=== PATIENT | female | born 1945 | race Caucasian/White ===

== ENCOUNTER → 2024-06-24 10:17 | Outpatient (REF) | payer OTHER, SELFPAY ==
[2024-06-24 10:50] LABS: % Basophils 0.6 % (0-2); % Eosinophils 1.1 % (0-6); % Immature Granulocytes 0.2 % (0-0.5); % Lymphocytes 21.3 % (20.5-51.1); % Monocytes 9.1 % (1.7-9.3); % Neutrophils 67.7 % (42.2-75.2); Absolute Basophils 0.1 10^3/uL (0-0.2); Absolute Eosinophils 0.1 10^3/uL (0-0.7); Absolute Lymphocytes 1.8 10^3/uL (1.2-3.4); Absolute Monocytes 0.8 10^3/uL (0.1-0.6); Absolute Neutrophils 5.8 10^3/uL (1.4-6.5); Hematocrit 40.1 % (37.0-47.0); Hemoglobin 13.1 g/dL (12.0-16.0); Mean Corp Hgb Conc. 32.7 g/dL (33.0-37.0); Mean Corpuscular Volume 88.7 fL (81.0-99.0); Mean Platelet Volume 9.4 fL (7.4-10.4); Nucleated Red Blood Cells % 0 %; Platelet Count 269 10^3/uL (130-400); Red Blood Cell Count 4.52 10^6/uL (4.20-5.40); Red Cell Dist. Width 12.9 % (11.5-14.5); White Blood Cell Count 8.6 10^3/uL (4.8-10.8)
[2024-06-24 11:14] LABS: ALT (SGPT) 14 U/L (0-35); AST (SGOT) 25 U/L (14-36); Albumin 4.2 g/dl (3.5-5.0); Alkaline Phosphatase 89 U/L (38-126); Blood Urea Nitrogen 21 mg/dl (7-17); Calcium 9.2 mg/dl (8.4-10.2); Carbon Dioxide 26 mmol/L (22-30); Chloride 101 mmol/L (98-107); Glucose 105 mg/dl (70-99); Potassium 5.4 mmol/L (3.5-5.1); Sodium 139 mmol/L (135-145); Total Bilirubin 0.2 mg/dl (0.2-1.3); Total Protein 7.5 g/dl (6.3-8.2); eGFR 50.48
== END ==
LOC: REG 10:17
PROVIDERS: ATTENDING PHYSICIAN Physician Assistant
DX: R10.823 Right lower quadrant rebound abdominal tenderness (principal)
CPT/HCPCS: 36415; 80053; 85025

== ENCOUNTER → 2024-06-24 13:28 | Outpatient (REF) | payer OTHER, SELFPAY | LOC: RAD 13:28 | PROVIDERS: ATTENDING PHYSICIAN Physician Assistant | DX: R10.823 Right lower quadrant rebound abdominal tenderness (principal) | CPT/HCPCS: 74177; Q9967 ==